=== PATIENT | male | born 1990 | race Caucasian/White ===

== ENCOUNTER 2017-02-28 03:11 | Emergency (ER) | payer SELFPAY ==
[~2017-02-28] VITALS: Ht 167.6 cm; Wt 72.0 kg
[2017-02-28 03:14] VITALS: BP 136/86
== END 2017-02-28 03:55 | disposition left against medical advice (07) ==
LOC: EMS 03:13
DX: T65.891A Toxic effect of other specified substances, accidental (unintentional), initial encounter (principal); F17.210 Nicotine dependence, cigarettes, uncomplicated; Z53.21 Procedure and treatment not carried out due to patient leaving prior to being seen by health care provider